=== PATIENT | male | born 1965 | race Caucasian/White ===

== ENCOUNTER 2019-06-16 09:48 | Emergency (ER) | payer BC ==
[2019-06-16] MEDS ORDERED: Lidocaine 1% 20 ML MDV INFILT ONE (09:49)
--- NOTE | 2019-06-16 11:14 | EDM.PDOC ---
ED HPI GENERAL MEDICAL PROBLEM - General Chief Complaint: Lower Extremity Injury/Pain Stated Complaint: LT LEG INFECTION Time Seen by Provider: 06/16/19 10:08 Source of Information: Reports: Patient, Family, Old Records History Limitations: Reports: No Limitations - History of Present Illness INITIAL COMMENTS - FREE TEXT/NARRATIVE: Patient presents with concern for a wound infection following a removal of a lesion presumed to be melanoma by dermatology. Stitches were taken out 6 days ago and over the weekend they noticed some increasing erythema around the scar. He was seen in clinic on Friday and started on Keflex 4 times a day, a line was placed around the wound yesterday and he came in this morning at the concern of his for worsening infection. Lots of drainage of clear fluid overnight. No fever, chills or sweats. Has otherwise felt healthy, does not have diabetes, and no history of MRSA infections. Similar lesion removed last year on the opposite leg with subsequent infection, cultures showed rare Escherichia coli and coag negative staph. Resolved with oral antibiotics. Treatments PATIENT CARE SECRETARY: Reports: NSAIDS L posterior knee Pain Score (Numeric/FACES): 4 - Related Data Allergies Allergy/AdvReac Type Severity Reaction Status Date / Time No Known Allergies Allergy Verified 06/16/19 09:59 Home Meds: Home Meds Losartan/Hydrochlorothiazide [Losartan-HCTZ 100-25 MG] 1 each PO DAILY 06/16/19 [History] Montelukast [Singulair] 10 mg PO DAILY 06/16/19 [History] PARoxetine [Paxil CR] 37.5 mg PO DAILY 06/16/19 [History] Simvastatin [Zocor] 40 mg DAILY 06/16/19 [History] Sulfamethoxazole/Trimethoprim [Bactrim Ds Tablet] 1 each PO BID 7 Days #14 tablet 06/16/19 [Rx] Testosterone Cypionate [Depo-Testosterone] 0.75 ml Q14D 06/16/19 [History] buPROPion HCl [Wellbutrin Xl] 300 mg PO DAILY 06/16/19 [History] cephALEXin [Cephalexin] 500 mg QID 06/16/19 [History] Past Medical History Cardiovascular History: Reports: High Cholesterol, Hypertension Respiratory History: Reports: Asthma Gastrointestinal History: Reports: Diverticulosis Psychiatric History: Reports: Anxiety, Depression Endocrine/Metabolic History: Reports: Obesity/BMI 30+ Oncologic (Cancer) History: Reports: Malignant Melanoma Dermatologic History: Reports: Melanoma - Infectious Disease History Infectious Disease History: Reports: Chicken Pox - Past Surgical History GI Surgical History: Reports: Colonoscopy Oncologic Surgical History: Reports: None Social & Family History - Family History Family Medical History: Noncontributory - Tobacco Use Smoking Status *Q: Former Smoker Used Tobacco, but Quit: Yes Month/Year Tobacco Last Used: 2003 - Caffeine Use Caffeine Use: Reports: Coffee - Alcohol Use Days Per Week of Alcohol Use: 1 Number of Drinks Per Day: 2 Total Drinks Per Week: 2 - Recreational Drug Use Recreational Drug Use: No - Living Situation & Occupation Living situation: Reports: Occupation: Employed (farm) Social History Comment: works in [employer] Review of Systems - Review of Systems Review Of Systems: ROS reveals no pertinent complaints other than HPI. ED EXAM, GENERAL - Physical Exam Exam: See Below Free Text/Narrative:: Gen.: Alert, very pleasant no acute distress. There is a 4 cm scar from previous incision on the back of his right leg. There is erythema surrounding the scar approximately 7.5 x 8.5 cm, which is less then the diameter of the outlined which was made yesterday. Slight drainage is noted when the bandage is removed. bedside US shows no subdermal or subcutaneous fluid pockets, but image resolution is limited by probe type ED TRAUMA EXTREMITY PROCEDURES - I&D Site: left leg Skin Prep: Chlorhexidine (Hibiciens) Local Anesthesia: Lidocaine: 1% Plain Local Anesthetic Volume: 3cc Area Incised With: 11 Blade Drainage: Clear Probed to Break Up Loculations: No Packed With: 1/2 in. Iodoform Sterile Dressinx4(s) Complications: No Progress/Comments: wound closure site gently reopened with 11 blade and cavity underneath exposed, I suspect there was at one time fluid pocket from original procedure but has drained prior to arrival, no pus seen. Granulation tissue present. Cavity was packed with 1.5inch iodoform gauze to prevent from recurring. Small opening at other end of scar made with only bleeding, no pus seen. No palpable pockets of fluctuance were seen. Course - Vital Signs Text/Narrative:: impression - cellulitis surround healing skin lesion removal, improving on keflex but new extension to the lateral side. Given previous + e coli on last year's cultures will switch patient to bactrim. packing placed as per procedure note. See discharge instructions. Last Recorded V/S: Last Vital Signs Temp 36.6 C 06/16/19 09:52 Pulse 68 06/16/19 09:52 Resp 18 06/16/19 09:52 BP 171/93 H 06/16/19 09:52 Pulse Ox 99 06/16/19 09:52 - Orders/Labs/Meds Orders: Active Orders 24 hr Category Date Time Status CULTURE ROUTINE + SMEAR [RM] Routine Lab 06/16/19 10:30 Received Departure - Departure Time of Disposition: 11:09 Disposition: Home, Self-Care 01 Clinical Impression: Cellulitis, Wound abscess - Discharge Information *PRESCRIPTION DRUG MONITORING PROGRAM REVIEWED*: Not Applicable *COPY OF PRESCRIPTION DRUG MONITORING REPORT IN PATIENT NAFISA: Not Applicable Prescriptions: Sulfamethoxazole/Trimethoprim [Bactrim Ds Tablet] 1 each PO BID 7 Days #14 tablet Instructions: Cellulitis, Adult Referrals: Johana Willis, SPRAYER OPERATOR [Primary Care Provider] - Forms: ED Department Discharge Additional Instructions: stop keflex start Bactrim - 2 doses today as long as first dose is before lunch warm compresses to wound area to promote draining 3-4X/day if improving (even if still clear drainage) remove packing - easiest way is to pull it out quickly while taking a shower may continue to drain clear-clear yellow fluid. As long as not thick, white, green, or purulent it is related to wound healing and not an abscess keep wound covered especially while outside may place new line around wound tomorrow w/ date if still concerned if fever, pain moving knee, increasing redness - should be re-evaluated cultures taken today -- though might be negative because of two days of antibiotics ibuprofen ok for pain NO ICE Recheck at clinic with regular MD in 2 days if not improving. - My Orders Last 24 Hours: My Active Orders 06/16/19 10:30 CULTURE ROUTINE + SMEAR [RM] Routine - Assessment/Plan Last 24 Hours: My Active Orders 06/16/19 10:30 CULTURE ROUTINE + SMEAR [RM] Routine
== END 2019-06-16 11:43 | disposition home or self-care (01) ==
LOC: FB.ED 09:48
DX: T81.40XA Infection following a procedure, unspecified, initial encounter (principal); L02.416 Cutaneous abscess of left lower limb; L03.116 Cellulitis of left lower limb; F32.9 Major depressive disorder, single episode, unspecified; F41.9 Anxiety disorder, unspecified; E78.00 Pure hypercholesterolemia, unspecified; I10 Essential (primary) hypertension; J45.909 Unspecified asthma, uncomplicated; Z79.899 Other long term (current) drug therapy; Z87.891 Personal history of nicotine dependence
CPT/HCPCS: 10061; 87070; 87077; 87186; 87205; 99283; J2001

== ENCOUNTER 2024-03-05 19:05 | Emergency (ER) | payer BC | END 2024-03-05 21:52 | disposition home or self-care (01) | LOC: FB.ED 19:05 | DX: S59.901A Unspecified injury of right elbow, initial encounter (principal); E78.00 Pure hypercholesterolemia, unspecified; I10 Essential (primary) hypertension; Z79.899 Other long term (current) drug therapy; X50.0XXA Overexertion from strenuous movement or load, initial encounter | CPT/HCPCS: 73080-RT; 99283 ==